=== PATIENT | male | born 1995 | race Caucasian/White ===

== ENCOUNTER → 2021-05-16 16:50 | Outpatient (CLI) | payer OTHER, SELFPAY ==
[2021-05-20 00:36] LABS: Chlamydia trachomatis NAA Negative (Negative); Neisseria gonorrhoeae NAA Negative (Negative)
== END ==
PROVIDERS: PCP Family Medicine; Visit Provider Physician Assistant
DX: R30.0 Dysuria (principal)
CPT/HCPCS: 81002; 87086; 87491; 87591

== ENCOUNTER → 2021-07-25 12:13 | Outpatient (CLI) | payer OTHER, SELFPAY ==
[2021-07-25 18:24] LABS: Add Manual Diff / Slide Review NO; Basophils Absolute Auto 0 /uL (0-100); Basophils Percent Auto 0.4 % (0-2); Eosinophils Absolute Auto 100 /uL (0-450); Eosinophils Percent Auto 1.3 % (2-4); Hemoglobin 13.9 g/dL (13.5-17.5); Lymphocytes Absolute Auto 2400 /uL (1100-4500); Mean Corpuscular HGB Conc 34.6 % (30-36); Mean Corpuscular Hemoglobin 30.9 PG (26-34); Mean Corpuscular Volume 89.4 fL (80-100); Monocytes Absolute Auto 700 /uL (0-900); Monocytes Percent Auto 7.6 % (3-14); Neutrophils Absolute Auto 6400 /uL (1500-7000); Neutrophils Percent Auto 65.7 % (50-75); Platelet Count 198 X10^3/uL (150-400); Red Blood Cell Count 4.48 X10^6/uL (4.5-5.9); Red Cell Distribution Width 13.6 % (11.6-14.8); White Blood Cell Count 9.8 X10^3/uL (4.5-11.0)
[2021-07-25 18:29] LABS: Alanine Aminotransferase 45 IU/L (<50); Albumin 4.4 g/dL (3.5-5.0); Albumin Globulin Ratio 1.7 (1.0-2.8); Alkaline Phosphatase 46 U/L (38-126); Aspartate Aminotransferase 26 IU/L (17-59); Bilirubin Total 0.6 mg/dL (0.2-1.3); Blood Urea Nitrogen 13 mg/dL (9-20); Calcium 9.3 mg/dL (8.4-10.2); Carbon Dioxide 29 mmol/L (22-32); Chloride 102 mmol/L (98-107); Estimated Glomerular Filt Rate > 60 mL/min (>60); Globulin 2.6 g/dL (1.7-4.1); Glucose 97 mg/dL (70-100); HEMOLYSIS < 15 (0-50); Potassium 3.9 mmol/L (3.4-5.1); Sodium 139 mmol/L (137-145)
== END ==
PROVIDERS: PCP Physician Assistant; Visit Provider Physician Assistant
DX: Z12.5 Encounter for screening for malignant neoplasm of prostate (principal); Z80.42 Family history of malignant neoplasm of prostate; Z86.59 Personal history of other mental and behavioral disorders
CPT/HCPCS: 80053; 85025; G0103

== ENCOUNTER → 2021-10-10 16:28 | Outpatient (CLI) | payer OTHER, SELFPAY | PROVIDERS: PCP Physician Assistant; Visit Provider Physician Assistant | DX: J02.9 Acute pharyngitis, unspecified (principal); R13.10 Dysphagia, unspecified | CPT/HCPCS: 87070 ==

== ENCOUNTER → 2022-06-28 15:16 | Outpatient (CLI) | payer OTHER, SELFPAY ==
--- NOTE | 2022-06-28 15:19 | DI.CT.S_ITS ---
PROCEDURE: CT SOFT TISSUE NECK W CON INDICATIONS: chronic throat pain, advise if prefer switch to contrast TECHNIQUE: After the administration of intravenous contrast, 3.0 mm axial sections acquired from the sella to the aortic arch. Additional oblique axial 3.0 mm sections acquired through the pharynx. 3 mm thick coronal and sagittal reformats were generated. For radiation dose reduction, the following was used: automated exposure control. COMPARISON: None. FINDINGS: Image quality: Excellent. Lymph nodes: No enlarged lymph nodes seen throughout the neck. Vessels: Visualized vasculature appears patent. Neck spaces: The oropharynx, nasopharynx, and pharynx demonstrate no mucosal lesions. The vocal cords, false vocal cords, pyriform sinuses, epiglottis, vallecula, and tongue base all appear normal. Extramucosal spaces appear unremarkable. Glands: The parotid and submandibular glands appear normal. Thyroid gland is unremarkable. Miscellaneous: Visualized brain and orbits appear normal. Lung apices appear clear. Superficial soft tissues appear normal. Bones: No suspicious bony lesions. Visualized sinuses and mastoids appear unremarkable. IMPRESSION: No visualized cause of throat pain. Dictated by: Gabrielle Barajas M.D. on 06/28/2022 at 16:47 Approved by: Gabrielle Barajas M.D. on 06/28/2022 at 16:48
== END ==
PROVIDERS: PCP Physician Assistant; Referring Provider Physician Assistant; Visit Provider Physician Assistant
DX: R07.0 Pain in throat (principal)
CPT/HCPCS: 70491; Q9967

== ENCOUNTER 2022-08-20 16:35 | Emergency (ER) | payer OTHER, SELFPAY ==
[2022-08-20 16:41] VITALS: BP 149/87; PULSE 93; RESP 18; TEMP 37.2; O2SAT 98; BMI 26.6
--- NOTE | 2022-08-20 17:39 | ED.WOUNDLAC ---
HPI - Wound/Laceration General Chief Complaint: Wound/Laceration Stated Complaint: RIGHT FORARM CUT Time Seen by Provider: 08/20/22 17:23 Source: patient Mode of arrival: Ambulatory History of Present Illness HPI narrative: 27-year-old male here for evaluation of a cut to his right arm. Patient states that he was at work. He was using a knife to cut some rope and the knife went through the broken cut him in the arm. He does need a tetanus updated. He covered with a bandage and came to the emergency department. Related Data Home Medications Medication Instructions Recorded Confirmed lamotrigine 150 mg tablet 150 mg PO DAILY 02/15/21 06/06/22 quetiapine 200 mg tablet (Seroquel) 200 mg PO BID 02/15/21 06/06/22 Previous Rx's Medication Instructions Recorded albuterol sulfate 90 mcg/actuation 1 puff inhalation Q6H PRN 05/16/21 aerosol inhaler bronchospasm #8.5 grams albuterol sulfate 2.5 mg/3 mL 2.5 mg (3 mL) inhalation Q6H #180 10/03/21 (0.083 %) solution for nebulization mL albuterol sulfate 90 mcg/actuation 2 inh inhalation Q4-6H PRN 05/24/22 breath activated powder inhaler shortness of breath or wheezing #1 ea fluticasone 500 mcg-salmeterol 50 See Rx Instructions .Route 05/24/22 mcg/dose blistr powdr for .COMPLEX #60 ea inhalation famotidine 20 mg tablet 20 mg PO BID #60 tabs 06/06/22 Allergies Allergy/AdvReac Type Severity Reaction Status Date / Time latex Allergy Intermediate Rash Verified 08/20/22 16:45 nitrile Allergy Intermediate Rash Verified 08/20/22 16:45 shellfish derived AdvReac Intermediate Abdominal Verified 08/20/22 16:45 Pain Review of Systems Musculoskeletal Musculoskeletal: Reports system reviewed and no additional complaints, except as documented Integumentary/Breasts Skin/Breast: Reports system reviewed and no additional complaints, except as documented Patient History Medical History Abrasion of right cornea (~07/17/19) Asthma (~1994) Bipolar disorder in full remission Colon polyps (~2018) Depression screening Encounter for hepatitis C screening test for low risk patient Encounter for screening for HIV History of bipolar disorder (~2000) Surgical History (Updated 06/01/21 @ 09:50 by Mery Fierro PA-C) Anesthesia History of bilateral inguinal hernia repair (~05/2019) Social History Smoking Status: Never smoker Smoking Status: Never smoker Substance Use Type: does not use Exam Initial Vital Signs Initial Vital Signs: Vital Signs Temperature 99 F 08/20/22 16:41 Pulse Rate 93 H 08/20/22 16:41 Respiratory Rate 18 08/20/22 16:41 Blood Pressure 149/87 H 08/20/22 16:41 Pulse Oximetry 98 08/20/22 16:41 Oxygen Delivery Method Room Air 08/20/22 16:41 Skin Other: Patient has a 6 cm laceration to the right forearm. Neuro Sensory Exam: no sensory deficits noted Procedures Laceration Repair Laceration 1: Site: upper extremity Side (If applicable): right Size (cm): 6 Description: linear Depth: simple, single layer Local Anesthetic: lidocaine 1% and with epi Amount of anesthesia used (mL): 6 Pre-repair: wound explored, irrigated extensively and deep structures intact Skin layer closed with: nylon Skin layer suture size: 4-0 Number of sutures: 7 Technique: simple, interrupted Course Orders Ordered: Discontinued Medications Diphtheria/Tetanus/Acell Pertussis (Tet,Diph,Pertuss(Acell),Vac/Pf 0.5 Ml Syringe) 0.5 ml IM .ONCE ONE Stop: 08/20/22 17:18 Last Admin: 08/20/22 17:44 Dose: 0.5 ml Documented By: SARIAH Vital Signs Vital signs: Vital Signs - 8 hr 08/20/22 16:41 Temperature 99 F Pulse Rate 93 H Respiratory Rate 18 Blood Pressure 149/87 H Pulse Oximetry 98 Oxygen Delivery Method Room Air MDM - Wound/Laceration MDM Narrative Medical decision making narrative: Patient is neurovascularly intact. His tetanus is updated. Wound was cleaned. No deep structure involvement. Wound was closed as described above. No indication for antibiotics. Patient was given care instructions and return precautions. He expressed understanding and agreement. Discharge Plan Departure Patient Disposition: Home Clinical Impression: Laceration Instructions: DI for Laceration Repair Activity Restrictions/Additional Instructions: The stitches do need to be removed in the next 7-10 days. Until then I do recommend you keep the area clean. You can cover with a topical antibiotic ointment. You can bathe like normal and use soap and water. Return to the emergency department for new or worsening symptoms. Prescriptions: No Action albuterol sulfate 90 mcg/actuation HFA aerosol inhaler 1 puff inhalation Q6H PRN (Reason: bronchospasm) Qty: 8.5 3RF famotidine 20 mg tablet 20 mg PO BID Qty: 60 1RF quetiapine [Seroquel] 200 mg tablet 200 mg PO BID lamotrigine 150 mg tablet 150 mg PO DAILY albuterol sulfate 2.5 mg /3 mL (0.083 %) solution for nebulization 2.5 mg inhalation Q6H Qty: 180 0RF fluticasone propion-salmeterol 500-50 mcg/dose blister with device See Rx Instructions .ROUTE .COMPLEX Qty: 60 5RF Dose Instruction: INHALE 1 PUFF BY MOUTH TWO TIMES A DAY Rx Instructions: INHALE 1 PUFF BY MOUTH TWO TIMES A DAY albuterol sulfate 90 mcg/actuation aerosol powdr breath activated 2 inh inhalation Q4-6H PRN (Reason: shortness of breath or wheezing) Qty: 1 2RF Referrals: Mery Fierro PA-C [Primary Care Provider] - Stand Alone Forms: Patient Portal/API
[2022-08-20] MEDS: TET,DIPH,PERTUSS(ACELL),VAC/PF 0.5 ML SYRINGE IM (17:44)
[2022-08-20] MEDS: BACITRACIN OINT 0.9 GM PCKT 1 APPLIC TOP (18:31)
== END 2022-08-20 18:35 | disposition home or self-care (01) ==
PROVIDERS: Emergency Provider Emergency Medicine; PCP Physician Assistant
DX: S51.811A Laceration without foreign body of right forearm, initial encounter (principal); W26.0XXA Contact with knife, initial encounter; Y99.0 Civilian activity done for income or pay; Z23 Encounter for immunization
CPT/HCPCS: 12002; 90471; 99283; 90715